=== PATIENT | female | born 1985 | race Caucasian/White ===

== ENCOUNTER → 2016-04-29 | Outpatient (CLI) | payer BC | END | disposition home or self-care (01) | LOC: LABWHC1 12:49 | PROVIDERS: ATTEND Family Medicine | DX: F90.2 Attention-deficit hyperactivity disorder, combined type (principal) | CPT/HCPCS: 36415; 93005 ==

== ENCOUNTER → 2016-11-11 | Outpatient (CLI) | payer BC ==
[2016-11-11 10:58] LABS: Basophils % (A) 1 %; CH 30.6; CHCM 33.4; Eosinophils # (A) 0.1 k/uL (0-0.7); Eosinophils % (A) 2 %; HCT 39.5 % (34.0-46.0); HDW 2.13; HGB 13.3 gm/dL (11.4-16.0); Luc # (Auto) 0.07; Luc % (Auto) 2; Lymphocytes # (A) 1.5 k/uL (1.0-4.8); Lymphocytes % (A) 35 %; MCH 31.1 pg (25.0-35.0); MCHC 33.7 g/dL (31.0-37.0); MCV 92.1 fL (80.0-100.0); Mean Platelet Volume 7.5; Monocytes # (A) 0.3 k/uL (0-1.0); Monocytes % (A) 6 %; Neutrophils # (A) 2.4 k/uL (1.3-7.7); Neutrophils % (A) 55 %; RBC 4.29 m/uL (3.80-5.40); WBC 4.3 k/uL (3.8-10.6); WBC (Perox) 4.32
[2016-11-11 11:20] LABS: ALT 38 U/L (9-52); AST 19 U/L (14-36); Alkaline Phosphatase 44 U/L (38-126); Anion Gap 14 mmol/L; Blood Urea Nitrogen 9 mg/dL (7-17); Calcium 9.9 mg/dL (8.4-10.2); Carbon Dioxide 25 mmol/L (22-30); Chloride 106 mmol/L (98-107); Glucose 81 mg/dL (74-99); Non-African American GFR(MDRD) >60 (>60 ml/min/1.73 sqM); Potassium 4.3 mmol/L (3.5-5.1); Sodium 145 mmol/L (137-145); Total Bilirubin 0.9 mg/dL (0.2-1.3); Total Protein 7.3 g/dL (6.3-8.2)
[2016-11-14 14:38] LABS: Mis test requested (Blood) Stratify JVC Ab/Indx
== END | disposition home or self-care (01) ==
LOC: LABWHC1 10:18
PROVIDERS: ATTEND Nurse Practitioner Acute Care
DX: E55.9 Vitamin D deficiency, unspecified (principal); G35 Multiple sclerosis
CPT/HCPCS: 36415; 80053; 82306; 84439; 84443; 84481; 85025

== ENCOUNTER → 2016-11-23 | Outpatient (CLI) | payer BC ==
--- NOTE | 2016-11-23 20:15 | MR ---
EXAMINATION TYPE: MR brain/cspine wo/w DATE OF EXAM: 11/23/2016 COMPARISON: 02/17/2016 HISTORY: MS CONTRAST: Performed utilizing 14 mL intravenous MultiHance gadolinium contrast. TECHNIQUE: Multiplanar, multisequence imaging of the brain is performed on a 3.0 Lilia magnet. Demye linating disease protocol with additional Sagittal Flair sequence is performed. Study is performed wi thin 24 hours of arrival to the hospital. FINDINGS: T2 White Matter Lesions Present : Yes Approximate Number of Lesions: 1 Locations Identified : Periventricular white matter Size of Largest Lesion(s): 1. 0.4 x 0.5 x 0.5 cm. Location: Left centrum semiovale periventricular region posteriorly Sequence 501 Image 20 (axial)and Sequence 601 Image 14 (sagittal). In retrospect this was present previously. Enhancing Lesion(s) Present: No Change from Prior: Stable Diffusion-weighted imaging is performed. No abnormal hyperintensity is present to suggest an acute i ntracranial infarct or acute ischemic change. Ventricles and sulci are appropriate for the patient age. There are no abnormal extra-axial fluid collections. The ventricular system and cisternal spaces are normal in size and appearance. The brain volume is age appropriate. The craniocervical junction jamie ears within normal limits. The dural venous sinuses appear patent. No abnormal enhancement is present on post contrast images. . There is a retention cyst within the ri ght maxillary sinus. Minimal mucosal thickenings with air cells. The orbits appear unremarkable. Post thickening is within the left frontal sinus. Mastoid air cells are clear. No abnormal enhancement is evident. IMPRESSION: 1. Solitary stable white matter change left posterior centrum semiovale adjacent to the left lateral ventricle superiorly 1 to 2 mm larger than previous measurements from prior exam. This is nonspecifi c. EXAMINATION TYPE: MR brain/cspine wo/w DATE OF EXAM: 11/23/2016 COMPARISON: 02/17/2016 HISTORY: MS CONTRAST: Performed utilizing 14 mL intravenous MultiHance gadolinium contrast. TECHNIQUE: Multiplanar multiecho imaging on a 3.0 Lilia magnet is performed through the cervical spin e. FINDINGS: The craniovertebral junction is normal. Vertebral body alignment is normal. Cervical spine: No focal disc herniation or significant disc bulge is evident. No spinal canal steno sis or neural foraminal stenosis is present. The posterior lateral spinal lesion posterior to the C3 level is again evident. This area measures 0. 4 x 0.3 cm x 0.4 series 1001 image 6, series 1201 39. This is extremely subtle but stable from prior study. This is better visualized on the sagittal proton-density MS protocol image. No abnormal enhancement is evident within the spine. IMPRESSIONS: 1. Stable left posterior lateral spinal cord lesion at C3.
== END | disposition home or self-care (01) ==
LOC: RADMRIMAIN 13:42
PROVIDERS: ATTEND Nurse Practitioner Acute Care
DX: R90.82 White matter disease, unspecified (principal); G95.89 Other specified diseases of spinal cord; M54.2 Cervicalgia
CPT/HCPCS: 70553; 72156; A9577

== ENCOUNTER → 2017-01-06 | Outpatient (CLI) | payer BC | END | disposition home or self-care (01) | LOC: LABWHC1 14:48 | PROVIDERS: ATTEND Obstetrics & Gynecology | DX: N92.6 Irregular menstruation, unspecified (principal) | CPT/HCPCS: 36415; 84702 ==

== ENCOUNTER → 2017-05-08 | Outpatient (CLI) | payer BC ==
[2017-05-08 12:49] LABS: Basophils % (A) 1 %; Eosinophils # (A) 0.1 k/uL (0-0.7); Eosinophils % (A) 3 %; Lymphocytes # (A) 1.9 k/uL (1.0-4.8); Lymphocytes % (A) 42 %; MCHC 33.2 g/dL (31.0-37.0); MCV 93.2 fL (80.0-100.0); Mean Platelet Volume 7.6; Monocytes # (A) 0.2 k/uL (0-1.0); Monocytes % (A) 4 %; Neutrophils # (A) 2.2 k/uL (1.3-7.7); Neutrophils % (A) 49 %; Platelet Count 221 k/uL (150-450); RBC 4.51 m/uL (3.80-5.40); RDW 12.8 % (11.5-15.5); WBC 4.5 k/uL (3.8-10.6)
[2017-05-08 12:58] LABS: ALT 33 U/L (9-52); AST 19 U/L (14-36); Alkaline Phosphatase 40 U/L (38-126); Anion Gap 12 mmol/L; Blood Urea Nitrogen 10 mg/dL (7-17); Calcium 10.3 mg/dL (8.4-10.2); Carbon Dioxide 26 mmol/L (22-30); Chloride 105 mmol/L (98-107); Glucose 88 mg/dL (74-99); Potassium 4.1 mmol/L (3.5-5.1); Sodium 143 mmol/L (137-145); Total Bilirubin 0.8 mg/dL (0.2-1.3); Total Protein 7.6 g/dL (6.3-8.2)
== END | disposition home or self-care (01) ==
LOC: LABWHC1 12:33
PROVIDERS: ATTEND Nurse Practitioner Acute Care
DX: E55.9 Vitamin D deficiency, unspecified (principal); G35 Multiple sclerosis
CPT/HCPCS: 36415; 80053; 82306; 85025

== ENCOUNTER → 2017-06-14 | Outpatient (CLI) | payer BC ==
--- NOTE | 2017-06-15 17:10 | MR ---
EXAMINATION TYPE: MR brain wo/w con DATE OF EXAM: 06/14/2017 COMPARISON: 11/23/2016 HISTORY: MS Follow Up, Gadavist 7.5 TECHNIQUE: Multiplanar, multisequence images of the brain and brainstem is performed without and with IV contras t, utilizing 7.5 mL intravenous Gadavist gadolinium contrast is administered intravenously. Demyelin ating disease protocol with additional Sagittal Flair sequence performed. FINDINGS: T2 Lesions Present : Yes Approximate Number of Lesions: 1 Locations Identified : Periventricular/pericallosal Size of Reference Lesion(s): 1. 0.4 cm x 0.5 cm x 0.5 cm on axial image 21 and sagittal image 11 2 # cm x # cm x # cm on axial image # and sagittal image # Enhancing Lesion(s) Present: No Change from Prior: Stable Diffusion weighted images demonstrate no evidence of a recent infarct or other diffusion abnormality. There is no worrisome extra-axial fluid collection. The ventricular system and cisternal spaces ar e normal in size and appearance. The brain volume is age appropriate. Midline structures demonstrate normal morphology. There is incidental note made of a 3 mm pineal gla nd cyst. The craniocervical junction appears within normal limits. Post contrast images demonstrate no abnormal enhancement. The dural venous sinuses appear patent. The globes are intact. No enhancemen t on the optic nerves. There is mild coastal thickening within the ethmoid and left frontal sinus wit h a 2.3 cm maxillary mucosal retention cyst. IMPRESSION: 1. Solitary stable left periventricular/pericallosal white matter change/demyelinating plaque that is nonenhancing and does not restricted diffusion and therefore does not demonstrate evidence of active demyelination. 2. Redemonstration of a right maxillary mucosal retention cyst measuring 2.3 cm. Mild paranasal sinus disease.
== END | disposition home or self-care (01) ==
LOC: RADMRIMAIN 13:31
PROVIDERS: ATTEND Psychiatry & Neurology Neurology
DX: G35 Multiple sclerosis (principal)
CPT/HCPCS: 70553; A9581

== ENCOUNTER 2017-11-23 10:00 | Inpatient (IN) | payer BC ==
[2017-11-23] MEDS ORDERED: PIPERACILLIN-TAZOBACTAM 3.375 GM in DEXTROSE/WATER 1 50ML.BAG IVPB STA (10:34)
[2017-11-23] MEDS ORDERED: IPRATROPIUM 0.5 MG/2.5 ML NEBU INHALATION STA (10:34)
[2017-11-23] MEDS ORDERED: ALBUTEROL NEBULIZED 2.5 MG/3 ML INHALATION STA (10:34)
[2017-11-23] MEDS ORDERED: SODIUM CHLORIDE 0.9% 500 ML IV STA (10:34)
[2017-11-23] MEDS ORDERED: LEVOFLOXACIN 750MG-D5W PMX 750 MG in DEXTROSE/WATER 1 150ML.BAG IVPB STA (10:34)
[2017-11-23] MEDS ORDERED: methylPREDNISolone SOD SUCCI 125 MG/2 ML VIAL IV STA (10:34)
[2017-11-23] MEDS ORDERED: SODIUM CHLORIDE 0.9% 1,000 ML IV STA (10:34)
[2017-11-23 11:04] LABS: Appearance,Urine Clear (Clear); Basophils % (A) 0 %; Bilirubin,Urine Negative (Negative); Blood,Urine Large (Negative); Color,Urine Light Yellow; Eosinophils # (A) 0.3 k/uL (0-0.7); Eosinophils % (A) 4 %; Glucose,Urine (UA) Negative (Negative); HCT 41.2 % (34.0-46.0); HGB 14.1 gm/dL (11.4-16.0); Ketones,Urine Negative (Negative); Leukocyte Esterase,Urine Negative (Negative); Lymphocytes # (A) 1.7 k/uL (1.0-4.8); Lymphocytes % (A) 20 %; MCH 31.4 pg (25.0-35.0); MCHC 34.2 g/dL (31.0-37.0); MCV 91.7 fL (80.0-100.0); Mean Platelet Volume 7.4; Monocytes # (A) 0.6 k/uL (0-1.0); Monocytes % (A) 6 %; Neutrophils # (A) 6.1 k/uL (1.3-7.7); Neutrophils % (A) 69 %; Nitrite,Urine Negative (Negative); Platelet Count 303 k/uL (150-450); Protein,Urine Negative (Negative); RBC 4.49 m/uL (3.80-5.40); RBC,Urine 1 /hpf (0-5); RDW 12.7 % (11.5-15.5); Specific Gravity,Urine 1.002 (1.001-1.035); Squamous Epithelial Cell,Urine 2 /hpf (0-4); Urobilinogen,Urine <2.0 mg/dL (<2.0); WBC 8.9 k/uL (3.8-10.6); WBC,Urine 1 /hpf (0-5)
[2017-11-23 11:12] LABS: ALT 259 U/L (9-52); AST 126 U/L (14-36); Albumin 4.3 g/dL (3.5-5.0); Alkaline Phosphatase 38 U/L (38-126); Anion Gap 10 mmol/L; Blood Urea Nitrogen 9 mg/dL (7-17); Calcium 9.7 mg/dL (8.4-10.2); Carbon Dioxide 26 mmol/L (22-30); Chloride 107 mmol/L (98-107); Glucose 56 mg/dL (74-99); Potassium 4.4 mmol/L (3.5-5.1); Sodium 143 mmol/L (137-145); Total Bilirubin 0.6 mg/dL (0.2-1.3); Total Protein 7.1 g/dL (6.3-8.2)
[2017-11-23 11:19] LABS: D-Dimer 0.43 mg/L FEU (<0.60); Partial Thromboplastin Time 23.2 sec (22.0-30.0); Prothrombin Time 9.9 sec (9.0-12.0)
[2017-11-23 11:23] LABS: Creatine Kinase 92 U/L (30-135)
[2017-11-23 11:36] LABS: Troponin I <0.012 ng/mL (0.000-0.034)
--- NOTE | 2017-11-23 11:49 | ED ---
General Adult HPI - General Chief complaint: Shortness of Breath Stated complaint: Diff Breahing Time Seen by Provider: 11/23/17 10:15 Source: patient, RN notes reviewed, old records reviewed Mode of arrival: ambulatory Limitations: no limitations - History of Present Illness Initial comments: This is a 32-year-old female the ER for evaluation of cough congestion and fevers. Patient has medical history of MS. Currently on antibiotics for diagnosis of pneumonia one week ago. Patient states she has not improved at all despite antibiotic therapy she is Exie gotten worse. She continues with shortness of breath cough weakness she is complaining of vision changes hand and finger numbness and weakness. These are typical symptoms of her MS, patient also complaining of shortness of breath, denying any current chest pain. No recent travel history no sick contacts no history of DVT - Related Data Home Medications Medication Instructions Recorded Confirmed Medroxyprogesterone Acetate 150 mg IM DIRECTED 06/24/15 02/12/16 [Depo-Provera] Betaseron 0.3 mg SQ DIRECTED 02/08/16 02/12/16 Escitalopram [Lexapro] 10 mg PO DAILY 02/08/16 02/12/16 Allergies Allergy/AdvReac Type Severity Reaction Status Date / Time No Known Allergies Allergy Verified 11/23/17 10:10 Review of Systems ROS Statement: Those systems with pertinent positive or pertinent negative responses have been documented in the HPI. ROS Other: All systems not noted in ROS Statement are negative. Past Medical History Past Medical History: Neurologic Disorder Additional Past Medical History / Comment(s): MS History of Any Multi-Drug Resistant Organisms: None Reported Past Surgical History: Tonsillectomy Past Psychological History: Anxiety, Depression Smoking Status: Former smoker Past Alcohol Use History: Rare Past Drug Use History: None Reported General Exam Limitations: no limitations General appearance: alert, in no apparent distress, anxious Head exam: Present: atraumatic, normocephalic, normal inspection Eye exam: Present: normal appearance, PERRL, EOMI. Absent: scleral icterus, conjunctival injection, periorbital swelling ENT exam: Present: normal exam, mucous membranes moist Neck exam: Present: normal inspection. Absent: tenderness, meningismus, lymphadenopathy Respiratory exam: Present: normal lung sounds bilaterally, rhonchi, decreased breath sounds. Absent: respiratory distress, wheezes, rales, stridor Cardiovascular Exam: Present: regular rate, normal rhythm, normal heart sounds. Absent: systolic murmur, diastolic murmur, rubs, gallop, clicks GI/Abdominal exam: Present: soft, normal bowel sounds. Absent: distended, tenderness, guarding, rebound, rigid Extremities exam: Present: normal inspection, full ROM, normal capillary refill. Absent: tenderness, pedal edema, joint swelling, calf tenderness Back exam: Present: normal inspection Neurological exam: Present: alert, oriented X3, CN II-XII intact Psychiatric exam: Present: normal affect, normal mood Skin exam: Present: warm, dry, intact, normal color. Absent: rash Course Vital Signs 11/23/17 11/23/17 11/23/17 10:07 10:49 10:53 Temperature 98.2 F Pulse Rate 100 100 86 Respiratory 20 20 Rate Blood Pressure 133/89 115/79 O2 Sat by Pulse 100 100 Oximetry 11/23/17 11/23/17 11:05 11:30 Temperature Pulse Rate 103 H 108 H Respiratory Rate Blood Pressure O2 Sat by Pulse Oximetry - Reevaluation(s) Reevaluation #1: 11/23/17 12:29 Patient still remains short of breath with no significant improvement here in the ER EKG Findings - EKG Comments: EKG Findings:: EKG shows normal sinus rhythm rate of 92, AR 120, QRS 80, QTC 455 Medical Decision Making - Medical Decision Making 32 female the ER for evaluation of recurrent pneumonia continued pneumonia despite therapy as an outpatient, has taken doxycycline times one week with no help. Patient's significant infection is also lead to MS exacerbation causing her severe weakness and difficulty breathing, vision changes. - Lab Data Result diagrams: 11/23/17 10:43 11/23/17 10:43 Lab Results 11/23/17 11/23/17 11/23/17 Range/Units 10:43 10:43 10:43 WBC 8.9 (3.8-10.6) k/uL RBC 4.49 (3.80-5.40) m/uL Hgb 14.1 (11.4-16.0) gm/dL Hct 41.2 (34.0-46.0) % MCV 91.7 (80.0-100.0) fL MCH 31.4 (25.0-35.0) pg MCHC 34.2 (31.0-37.0) g/dL RDW 12.7 (11.5-15.5) % Plt Count 303 (150-450) k/uL Neutrophils % 69 % Lymphocytes % 20 % Monocytes % 6 % Eosinophils % 4 % Basophils % 0 % Neutrophils # 6.1 (1.3-7.7) k/uL Lymphocytes # 1.7 (1.0-4.8) k/uL Monocytes # 0.6 (0-1.0) k/uL Eosinophils # 0.3 (0-0.7) k/uL Basophils # 0.0 (0-0.2) k/uL PT (9.0-12.0) sec INR (<1.2) APTT (22.0-30.0) sec D-Dimer (<0.60) mg/L FEU Sodium 143 (137-145) mmol/L Potassium 4.4 (3.5-5.1) mmol/L Chloride 107 (98-107) mmol/L Carbon Dioxide 26 (22-30) mmol/L Anion Gap 10 mmol/L BUN 9 (7-17) mg/dL Creatinine 0.50 L (0.52-1.04) mg/dL Est GFR (CKD-EPI)AfAm >90 (>60 ml/min/1.73 sqM) Est GFR (CKD-EPI)NonAf >90 (>60 ml/min/1.73 sqM) Glucose 56 L (74-99) mg/dL Calcium 9.7 (8.4-10.2) mg/dL Magnesium 2.0 (1.6-2.3) mg/dL Total Bilirubin 0.6 (0.2-1.3) mg/dL AST 126 H (14-36) U/L ALT 259 H (9-52) U/L Alkaline Phosphatase 38 (38-126) U/L Total Creatine Kinase 92 (30-135) U/L CK-MB (CK-2) 1.0 (0.0-2.4) ng/mL CK-MB (CK-2) Rel Index 1.1 Troponin I <0.012 (0.000-0.034) ng/mL Total Protein 7.1 (6.3-8.2) g/dL Albumin 4.3 (3.5-5.0) g/dL Urine Color Urine Appearance (Clear) Urine pH (5.0-8.0) Ur Specific Riddle (1.001-1.035) Urine Protein (Negative) Urine Glucose (UA) (Negative) Urine Ketones (Negative) Urine Blood (Negative) Urine Nitrite (Negative) Urine Bilirubin (Negative) Urine Urobilinogen (<2.0) mg/dL Ur Leukocyte Esterase (Negative) Urine RBC (0-5) /hpf Urine WBC (0-5) /hpf Ur Squamous Epith Cells (0-4) /hpf Urine HCG, Qual (Not Detectd) 11/23/17 11/23/17 11/23/17 Range/Units 10:43 10:43 10:43 WBC (3.8-10.6) k/uL RBC (3.80-5.40) m/uL Hgb (11.4-16.0) gm/dL Hct (34.0-46.0) % MCV (80.0-100.0) fL MCH (25.0-35.0) pg MCHC (31.0-37.0) g/dL RDW (11.5-15.5) % Plt Count (150-450) k/uL Neutrophils % % Lymphocytes % % Monocytes % % Eosinophils % % Basophils % % Neutrophils # (1.3-7.7) k/uL Lymphocytes # (1.0-4.8) k/uL Monocytes # (0-1.0) k/uL Eosinophils # (0-0.7) k/uL Basophils # (0-0.2) k/uL PT 9.9 (9.0-12.0) sec INR 1.0 (<1.2) APTT 23.2 (22.0-30.0) sec D-Dimer 0.43 (<0.60) mg/L FEU Sodium (137-145) mmol/L Potassium (3.5-5.1) mmol/L Chloride (98-107) mmol/L Carbon Dioxide (22-30) mmol/L Anion Gap mmol/L BUN (7-17) mg/dL Creatinine (0.52-1.04) mg/dL Est GFR (CKD-EPI)AfAm (>60 ml/min/1.73 sqM) Est GFR (CKD-EPI)NonAf (>60 ml/min/1.73 sqM) Glucose (74-99) mg/dL Calcium (8.4-10.2) mg/dL Magnesium (1.6-2.3) mg/dL Total Bilirubin (0.2-1.3) mg/dL AST (14-36) U/L ALT (9-52) U/L Alkaline Phosphatase (38-126) U/L Total Creatine Kinase (30-135) U/L CK-MB (CK-2) (0.0-2.4) ng/mL CK-MB (CK-2) Rel Index Troponin I (0.000-0.034) ng/mL Total Protein (6.3-8.2) g/dL Albumin (3.5-5.0) g/dL Urine Color Light Yellow Urine Appearance Clear (Clear) Urine pH 7.0 (5.0-8.0) Ur Specific Riddle 1.002 (1.001-1.035) Urine Protein Negative (Negative) Urine Glucose (UA) Negative (Negative) Urine Ketones Negative (Negative) Urine Blood Large H (Negative) Urine Nitrite Negative (Negative) Urine Bilirubin Negative (Negative) Urine Urobilinogen <2.0 (<2.0) mg/dL Ur Leukocyte Esterase Negative (Negative) Urine RBC 1 (0-5) /hpf Urine WBC 1 (0-5) /hpf Ur Squamous Epith Cells 2 (0-4) /hpf Urine HCG, Qual Not Detected (Not Detectd) - Radiology Data Radiology results: report reviewed (Chest x-ray is positive for pneumonia), image reviewed Disposition Clinical Impression: Community acquired pneumonia, Failure of outpatient treatment, Exacerbation of multiple sclerosis Disposition: ADMITTED IP TO THIS HOSP Condition: Good Is patient prescribed a controlled substance at d/c from ED?: No Referrals: Marshal Suazo MD [Primary Care Provider] - 1-2 days
[2017-11-23] MEDS ORDERED: PNEUMONIA PROTOCOL UTILIZED 1 EACH MISC PO PRN (12:30)
[2017-11-23 13:21] LABS: Glucose,Whole Blood 117 mg/dL (75-99)
[2017-11-23 13:28] VITALS: BMI 27.8
[2017-11-23 15:30] LABS: Glucose,Whole Blood 192 mg/dL (75-99)
[2017-11-23 19:43] LABS: Glucose,Whole Blood 193 mg/dL (75-99)
[2017-11-23] MEDS: ALBUTEROL NEBULIZED 2.5 MG/3 ML INHALATION PRN (20:27)
[2017-11-23 21:37] LABS: Glucose,Whole Blood 228 mg/dL (75-99)
[2017-11-23] MEDS: INSULIN ASPART 100 UNIT/ML 1 ML 10 ML VIAL SQ SCH (21:37)
[2017-11-23] MEDS ORDERED: IBUPROFEN 200 MG TAB PO PRN (22:56)
[2017-11-23] MEDS ORDERED: NON-FORMULARY DRUG (Dimethyl Fumarate [Tecfidera] 240 MG) PO SCH (23:00)
[2017-11-24] MEDS: Dimethyl Fumarate [Tecfidera] 240 MG PO SCH ×3 (00:27→21:05)
[2017-11-24] MEDS: diphenhydrAMINE 25 MG CAP PO PRN ×2 (00:27→21:28)
[2017-11-24] MEDS: PIPERACILLIN-TAZOBACTAM 3.375 GM in DEXTROSE/WATER 1 50ML.BAG IVPB SCH ×3 (00:28→16:34)
[2017-11-24] MEDS: SODIUM CHLORIDE 0.9% 1,000 ML IV SCH ×3 (00:29→17:46)
[2017-11-24 07:50] LABS: Glucose,Whole Blood 132 mg/dL (75-99)
[2017-11-24] MEDS: INSULIN ASPART 100 UNIT/ML 1 ML 10 ML VIAL SQ SCH ×4 (08:46→20:57)
[2017-11-24 10:24] LABS: Basophils % (A) 0 %; Eosinophils % (A) 0 %; HCT 40.2 % (34.0-46.0); HGB 13.4 gm/dL (11.4-16.0); Lymphocytes # (A) 1.3 k/uL (1.0-4.8); Lymphocytes % (A) 8 %; MCH 30.8 pg (25.0-35.0); MCHC 33.3 g/dL (31.0-37.0); MCV 92.3 fL (80.0-100.0); Mean Platelet Volume 6.9; Monocytes # (A) 0.3 k/uL (0-1.0); Monocytes % (A) 2 %; Neutrophils # (A) 15.8 k/uL (1.3-7.7); Neutrophils % (A) 90 %; Platelet Count 355 k/uL (150-450); RBC 4.36 m/uL (3.80-5.40); RDW 12.5 % (11.5-15.5); WBC 17.5 k/uL (3.8-10.6)
[2017-11-24 10:49] LABS: Anion Gap 12 mmol/L; Blood Urea Nitrogen 8 mg/dL (7-17); Calcium 9.9 mg/dL (8.4-10.2); Carbon Dioxide 21 mmol/L (22-30); Chloride 108 mmol/L (98-107); Glucose 254 mg/dL (74-99); Potassium 3.9 mmol/L (3.5-5.1); Sodium 141 mmol/L (137-145)
[2017-11-24] MEDS ORDERED: ALBUTEROL NEBULIZED 2.5 MG/3 ML INHALATION STA (10:53)
[2017-11-24] MEDS ORDERED: guaiFENesin 600 MG TABLET.ER PO PRN (11:21)
[2017-11-24] MEDS ORDERED: traMADol 50 MG TAB PO STA (11:40)
[2017-11-24 11:58] LABS: Glucose,Whole Blood 182 mg/dL (75-99)
[2017-11-24] MEDS ORDERED: LEVOFLOXACIN 750MG-D5W PMX 750 MG in DEXTROSE/WATER 1 150ML.BAG IVPB SCH (12:00)
[2017-11-24] MEDS: guaiFENesin 600 MG TABLET.ER PO SCH ×2 (12:06→20:57)
--- NOTE | 2017-11-24 12:09 | P.HPIM ---
History of Present Illness H&P Date: 11/24/17 Chief Complaint: weakness, fatigue, pna per UC 32-year-old female who presented to the emergency room with a chief complaint of weakness, fatigue, double vision, and pneumonia per patient. The patient reports she was in [place] last week and began feeling extremely fatigued, exhausted, and having double vision which she related to being at [employer] as they were doing a lot of activities and walking alot. The patient reports her symptoms did not improve when she got home. She states that she went to an urgent care last week and was prescribed an inhaler and doxycycline. She states her symptoms persisted so she went to [facility] yesterday who did an x-ray and told her she had bilateral pneumonia and referred her to the emergency room. No chest x-ray report is available at this time. The patient has a history of multiple sclerosis, anxiety, and depression. She is a former cigarette smoker. laboratory data upon admission reveals white count of 8.9. Hemoglobin 14.1. Platelet count 303. D-dimer 0.43. Sodium 143. Potassium 4.4. BUN 9. Creatinine 0.50. Glucose 56. AST 126. ALT 259. total bilirubin 0.6. Magnesium 2.0. Alkaline phosphatase 38. Troponins negative 1. the patient is currently receiving Levaquin and Zosyn. She was placed on IV fluids and admitted to the hospital for further evaluation. Neurology has been consulted for exacerbation of multiple sclerosis. Review of Systems Those systems with pertinent positive or pertinent negative responses have been documented in the HPI Past Medical History Past Medical History: Neurologic Disorder, Pneumonia Additional Past Medical History / Comment(s): MS (November 2015) History of Any Multi-Drug Resistant Organisms: None Reported Past Surgical History: Tonsillectomy Past Anesthesia/Blood Transfusion Reactions: No Reported Reaction Past Psychological History: Anxiety, Depression Smoking Status: Former smoker Past Alcohol Use History: Rare Past Drug Use History: None Reported - Past Family History Father Family Medical History: Cancer Additional Family Medical History / Comment(s): of Lung CA Medications and Allergies Home Medications Medication Instructions Recorded Confirmed Type Albuterol Inhaler [Ventolin Hfa 2 puff INHALATION RT-Q6H PRN 11/23/17 11/23/17 History Inhaler] Ascorbic Acid [Vitamin C] 500 mg PO DAILY 11/23/17 11/23/17 History Cholecalciferol [Vitamin D3] 1,000 unit PO DAILY 11/23/17 11/23/17 History Dimethyl Fumarate [Tecfidera] 240 mg PO BID 11/23/17 11/23/17 History Doxycycline Monohydrate 100 mg PO BID 11/23/17 11/23/17 History [Vibramycin] Ibuprofen/Diphenhydramine Cit 2 tab PO HS PRN 11/23/17 11/23/17 History [Motrin Pm Caplet] Inulin/Chromium Picolinate [Fiber 1 tab PO DAILY 11/23/17 11/23/17 History Gummies Chew] L.acidoph,Paracasei, B.lactis 1 cap PO DAILY 11/23/17 11/23/17 History [Probiotic] Lisdexamfetamine Dimesylate 70 mg PO QAM 11/23/17 11/23/17 History [Vyvanse] guaiFENesin [Mucinex] 600 mg PO Q12H PRN 11/23/17 11/23/17 History traMADol HCL [Ultram] 50 mg PO BID 11/23/17 11/23/17 History Allergies Allergy/AdvReac Type Severity Reaction Status Date / Time No Known Allergies Allergy Verified 11/23/17 13:02 Physical Exam Vitals: Vital Signs Temp Pulse Pulse Pulse Resp BP BP 11/24/17 07:00 97.6 F 98 18 104/62 11/23/17 23:00 99.0 F 97 18 119/70 11/23/17 20:35 98 11/23/17 20:29 94 11/23/17 20:23 98.4 F 102 H 16 111/72 11/23/17 20:10 102 H 16 11/23/17 14:41 99.1 F 101 H 16 111/67 11/23/17 13:17 99.1 F 91 16 121/85 11/23/17 12:50 98.2 F 11/23/17 12:47 80 16 109/66 Pulse Ox 11/24/17 07:00 93 L 11/23/17 23:00 95 11/23/17 20:35 11/23/17 20:29 11/23/17 20:23 94 L 11/23/17 20:10 11/23/17 14:41 96 11/23/17 13:17 98 11/23/17 12:50 08/19/18 12:47 97 Intake and Output 11/23/17 11/24/17 11/24/17 22:59 06:59 14:59 Intake Total 1570 240 Balance 1570 240 Intake: Intake, IV Titration 850 Amount Piperacillin-Tazobactam 3 50 .375 gm In Dextrose/Water 1 50ml.bag @ 12.5 mls/hr IVPB Q8HR [facility] Rx#: [id number] Sodium Chloride 0.9% 1, 800 000 ml @ 100 mls/hr IV . Q10H [facility] Rx#:[id number] Oral 720 240 Other: # Voids 3 1 Weight 66.678 kg GENERAL: This is a 32-year-old female in no apparent distress at the time of examination. Pleasant and cooperative. HEENT: Head is atraumatic, normocephalic. Pupils are equal, round, and reactive to light. Sclerae anicteric. Conjunctivae are clear. Mucus membranes of the mouth are moist. Neck is supple. RESPIRATORY: lung sounds coarse. No rales auscultated. No use of accessory muscles. Patient maintaining oxygen saturation greater than 92%. No chest wall tenderness is noted on palpation or with deep breathing. CARDIOVASCULAR: Regular rate and rhythm. S1 and S2 noted. No systolic or diastolic murmur auscultated. No JVD noted. No S3 or S4 noted. GASTROINTESTINAL: No distention noted. Abdomen soft and round. Normal active bowel sounds auscultated x 4 quadrants. No pain or tenderness noted upon palpation. INTEGUMENTARY: No cyanosis. No jaundice. No rashes noted. No cellulitis noted. EXTREMITIES: 2+ peripheral pulses. No evidence of peripheral edema. No calf tenderness noted. NEUROLOGIC: Cranial nerves II-XII intact. PSYCHIATRIC: Awake, alert, and oriented X 3. Appropriate affect. Intact judgement and insight. Results CBC & Chem 7: 11/24/17 09:58 11/24/17 09:58 Labs: Abnormal Lab Results - Last 24 Hours (Table) 11/23/17 11/23/17 11/23/17 Range/Units 13:19 15:28 19:36 WBC (3.8-10.6) k/uL Neutrophils # (1.3-7.7) k/uL Chloride (98-107) mmol/L Carbon Dioxide (22-30) mmol/L Creatinine (0.52-1.04) mg/dL Glucose (74-99) mg/dL POC Glucose (mg/dL) 117 H 192 H 193 H (75-99) mg/dL 11/23/17 11/24/17 11/24/17 Range/Units 21:32 07:30 09:58 WBC 17.5 H (3.8-10.6) k/uL Neutrophils # 15.8 H (1.3-7.7) k/uL Chloride (98-107) mmol/L Carbon Dioxide (22-30) mmol/L Creatinine (0.52-1.04) mg/dL Glucose (74-99) mg/dL POC Glucose (mg/dL) 228 H 132 H (75-99) mg/dL 11/24/17 Range/Units 09:58 WBC (3.8-10.6) k/uL Neutrophils # (1.3-7.7) k/uL Chloride 108 H (98-107) mmol/L Carbon Dioxide 21 L (22-30) mmol/L Creatinine 0.47 L (0.52-1.04) mg/dL Glucose 254 H (74-99) mg/dL POC Glucose (mg/dL) (75-99) mg/dL Microbiology - Last 24 Hours (Table) 11/23/17 20:39 Gram Stain - Preliminary Sputum Thrombosis Risk Factor Assmnt - Choose All That Apply Any of the Below Risk Factors Present?: Yes Each Factor Represents 1 point: Oral contraceptives or hormone replacement therapy Other Risk Factors: No Other congenital or acquired thrombophilia - If yes, enter type in comment: No Thrombosis Risk Factor Assessment Total Risk Factor Score: 1 Thrombosis Risk Factor Assessment Level: Low Risk Assessment and Plan Plan: ASSESSMENT: Acute exacerbation of multiple sclerosis Double vision secondary to above Steroid-induced hyperglycemia Bilateral pneumonia per x-ray at urgent care, repeat x-ray pending Transaminitis, possibly medication related History of anxiety and depression PLAN: Neurology on consult. Appreciate recommendations and input Continue IV steroids. Continue Novolog sliding scale ASHS per steroid protocol. continue antibiotics: Currently on Levaquin and Zosyn Await sputum culture results Repeat chest x-ray Albuterol nebulizer treatments Mucinex every 12 hours Repeat LFTs Home meds as appropriate Monitor labs GI prophylaxis: Pepcid 20 mg by mouth twice a day DVT prophylaxis: LEILA hose to bilateral lower extremities Monitor vital signs and address as appropriate Discharge planning: Patient to return home when stable Further recommendations pending patient's course Nurse practitioner note has been reviewed by physician. Signing provider agrees with the documented findings, assessment, and plan of care.
[2017-11-24 12:26] LABS: ALT 190 U/L (9-52); AST 60 U/L (14-36)
[2017-11-24 13:14] LABS: Hemoglobin A1C 5.5 % (4.0-6.0)
--- NOTE | 2017-11-24 13:37 | XR ---
EXAMINATION TYPE: XR chest 2V DATE OF EXAM: 11/24/2017 COMPARISON: Outside chest x-ray from yesterday. HISTORY: Pneumonia progress study. TECHNIQUE: Frontal and lateral views of the chest are obtained. FINDINGS: There is persistent patchy left basilar opacity seen best on frontal view versus lateral v iew likely localized to lingula on lateral view. No silhouetting of heart border or hemidiaphragm is seen. There is no new focal air space opacity, pleural effusion, or pneumothorax seen. The cardiac s ilhouette size is within normal limits. The osseous structures are intact. IMPRESSION: Suspect acute lingular infiltrate and/or atelectasis. No significant change from outside study one day earlier.
[2017-11-24 17:32] LABS: Glucose,Whole Blood 197 mg/dL (75-99)
[2017-11-24 20:51] LABS: Glucose,Whole Blood 183 mg/dL (75-99)
[2017-11-24] MEDS: traMADol 50 MG TAB PO SCH (20:57)
[2017-11-24] MEDS: FAMOTIDINE 20 MG TAB PO SCH (20:57)
[2017-11-24] MEDS: ALBUTEROL NEBULIZED 2.5 MG/3 ML INHALATION PRN (20:58)
[2017-11-25] MEDS: PIPERACILLIN-TAZOBACTAM 3.375 GM in DEXTROSE/WATER 1 50ML.BAG IVPB SCH ×2 (01:15→07:29)
[2017-11-25] MEDS: SODIUM CHLORIDE 0.9% 1,000 ML IV SCH ×2 (05:50→11:21)
[2017-11-25 06:20] VITALS: BP 98/62; TEMP 98
[2017-11-25 07:15] LABS: Glucose,Whole Blood 142 mg/dL (75-99)
--- NOTE | 2017-11-25 07:15 | XR ---
EXAMINATION TYPE: XR chest 2V DATE OF EXAM: 11/25/2017 COMPARISON: Prior chest x-ray 11/24/2017 HISTORY: Pneumonia TECHNIQUE: Frontal and lateral views of the chest are obtained. FINDINGS: There is residual increased attenuation present within the lingula. No evident pneumothora x or pleural effusion. Cardiomediastinal silhouette, pulmonary vascularity and tracee are unremarkable. IMPRESSION: Airspace disease within the lingula is compatible with pneumonia similar to previous exa m.
[2017-11-25] MEDS: Dimethyl Fumarate [Tecfidera] 240 MG PO SCH (07:16)
[2017-11-25] MEDS: FAMOTIDINE 20 MG TAB PO SCH (07:30)
[2017-11-25] MEDS: traMADol 50 MG TAB PO SCH (07:30)
[2017-11-25] MEDS: guaiFENesin 600 MG TABLET.ER PO SCH (07:30)
[2017-11-25] MEDS: INSULIN ASPART 100 UNIT/ML 1 ML 10 ML VIAL SQ SCH ×3 (07:58→16:38)
[2017-11-25 08:42] LABS: Basophils % (A) 0 %; Eosinophils % (A) 0 %; HCT 37.7 % (34.0-46.0); HGB 12.2 gm/dL (11.4-16.0); Lymphocytes % (A) 6 %; MCH 31.1 pg (25.0-35.0); MCHC 32.4 g/dL (31.0-37.0); MCV 95.8 fL (80.0-100.0); Mean Platelet Volume 7.1; Monocytes # (A) 0.4 k/uL (0-1.0); Monocytes % (A) 2 %; Neutrophils # (A) 16.8 k/uL (1.3-7.7); Neutrophils % (A) 92 %; Platelet Count 287 k/uL (150-450); RBC 3.94 m/uL (3.80-5.40); RDW 12.8 % (11.5-15.5); WBC 18.3 k/uL (3.8-10.6)
--- NOTE | 2017-11-25 08:44 | CONS ---
CONSULTATION DATE OF CONSULTATION: 11/24/2017. CHIEF COMPLAINT: Multiple sclerosis exacerbation. HISTORY OF PRESENT ILLNESS: Mrs. Sims is a pleasant 32-year-old female who is being evaluated today on 11/24/2017 by the neurology service per the request of Dr. Suazo for a multiple sclerosis exacerbation. The patient has history of multiple sclerosis and is currently on Tecfidera p.o. b.i.d. She has been on Tecfidera for couple of years and denies any adverse affects. Over the past several days, she has been having significant fatigue and double vision along with some numbness on her left side of her body. The patient was out of town in [place] last week when the symptoms started. When she returned home, she was still having symptoms and was also having some fevers. She was evaluated at a walk-in clinic and according to the chart, she was found to have pneumonia. She was brought into [facility] Emergency Room for further management. She has been started on IV antibiotics and IV Solu-Medrol. At the time of my evaluation, she reports significant improvement in her symptoms. She states that her fatigue has resolved and she denies any current double-vision. She continues to complain of mild numbness and tingling on the left side. Her CBC showed leukocytosis at 17.5 and her comprehensive metabolic profile showed hepatic insufficiency on her admission with an AST of 126 and an ALT of 259. A repeat CMP from this morning showed moderate improvement with an ALT of 190 and AST of 60. Her urinalysis showed large blood, with no other abnormalities. At the time of my evaluation, she is lying in her bed and appears to be in no acute distress. She denies any other neurological complaints. PAST MEDICAL HISTORY: Multiple sclerosis, anxiety disorder, depression, history of tonsillectomy. SOCIAL HISTORY: The patient is a former smoker. She rarely drinks alcohol. She denies any drug use. FAMILY HISTORY: Cancer. HOME MEDICATIONS: Reviewed in the chart. ALLERGIES: No known drug allergies. REVIEW OF SYSTEMS: CONSTITUTIONAL: As mentioned above. EYES: As mentioned above. ENT: Negative. CARDIOVASCULAR: Negative. RESPIRATORY: As mentioned above. NEUROLOGICAL: As mentioned above. PSYCHIATRIC: Positive for history of depression and anxiety disorder. MUSCULOSKELETAL: Positive for occasional joint pain. ENDOCRINE: Negative. DERMATOLOGICAL: Negative. PHYSICAL EXAM: Vital signs show a temperature of 99.2, pulse 97, respiration 18, blood pressure 109/69. GENERAL APPEARANCE: The patient is a well-developed female, who appears to be in no acute distress. HEENT: Normocephalic, atraumatic. No facial asymmetry is seen. NECK: Supple with no masses felt. CARDIOVASCULAR: Regular rate and rhythm. ABDOMEN: Nontender, nondistended. EXTREMITIES: Showed no edema or clubbing. NEUROLOGICAL: The patient is alert, aware and oriented x3. Speech and language are normal. Strength is full in all 4 extremities. No pronator drift is seen. No dysdiadochokinesia is noticed. Sensory exam showed slightly diminished light touch sensation on the left upper extremity compared to the right. No facial asymmetry is seen on cranial nerve testing. No tremors or seizure-like activity is seen. IMPRESSION: 1. Multiple sclerosis exacerbation. 2. Diplopia, resolved. 3. Left-sided numbness. 4. Fatigue. 5. Pneumonia. 6. Hepatic insufficiency. 7. Hematuria. RECOMMENDATION: The patient's neurological symptoms are consistent with multiple sclerosis exacerbation, which may have been exacerbated by the excessive heat. Her symptoms have improved but she continues to have mild numbness on the left side. I will continue with IV Solu-Medrol at 250 mg every [address] a prescription for prednisone taper in her chart. Physical therapy has been consulted. Her liver enzymes were found to be elevated. I do recommend continuing to monitor her liver function. I will repeat a hepatic profile lab tests for tomorrow morning. I do recommend further workup regarding her hematuria. Continue IV antibiotics for pneumonia. I will continue to follow with you. Further recommendations to follow. Thank you, Dr. Suazo for allowing me to participate in the care of your patient. If you have any questions, please feel free to contact me. MMODL / IJN: [id number] /
[2017-11-25] MEDS ORDERED: LACTOBACILLUS ACIDOPH & BULGAR 1 EACH PACKET PO SCH (09:00)
[2017-11-25] MEDS ORDERED: NON-FORMULARY DRUG (Lisdexamfetamine Dimesylate [Vyvanse] 70 MG) PO SCH (09:00)
[2017-11-25 09:17] LABS: ALT 159 U/L (9-52); AST 49 U/L (14-36); Albumin 3.6 g/dL (3.5-5.0); Alkaline Phosphatase 39 U/L (38-126); Anion Gap 13 mmol/L; Bilirubin, Delta 0.2 mg/dL (0.0-0.2); Bilirubin,Unconjugated 0.2 mg/dL (0.0-1.1); Blood Urea Nitrogen 11 mg/dL (7-17); Calcium 9.2 mg/dL (8.4-10.2); Carbon Dioxide 22 mmol/L (22-30); Chloride 107 mmol/L (98-107); Glucose 187 mg/dL (74-99); Potassium 3.8 mmol/L (3.5-5.1); Sodium 142 mmol/L (137-145); Total Bilirubin 0.4 mg/dL (0.2-1.3)
[2017-11-25] MEDS: ALBUTEROL NEBULIZED 2.5 MG/3 ML INHALATION PRN ×3 (09:22→16:17)
[2017-11-25] MEDS ORDERED: LEVOFLOXACIN 750 MG TAB PO SCH (12:00)
--- NOTE | 2017-11-25 12:26 | P.DS ---
Providers Date of admission: 11/23/17 12:30 Expected date of discharge: 11/25/17 Attending physician: Marshal Suazo Consults: 11/24/17 09:03 Consult Physician Routine Consulting Provider: Sandrita Auguste Consult Reason/Comments: MS exacerbation Do you want consulting provider notified?: Yes Primary care physician: [facility] Course: 32-year-old female who presented to the emergency room with a chief complaint of weakness, fatigue, double vision, and pneumonia per patient. The patient reports she was in [employer] last week and began feeling extremely fatigued, exhausted, and having double vision which she related to being at [employer] as they were doing a lot of activities and walking alot. The patient reports her symptoms did not improve when she got home. She states that she went to an urgent care last week and was prescribed an inhaler and doxycycline. She states her symptoms persisted so she went to [facility] yesterday who did an x-ray and told her she had bilateral pneumonia and referred her to the emergency room. No chest x-ray report is available at this time. The patient has a history of multiple sclerosis, anxiety, and depression. She is a former cigarette smoker. laboratory data upon admission reveals white count of 8.9. Hemoglobin 14.1. Platelet count 303. D-dimer 0.43. Sodium 143. Potassium 4.4. BUN 9. Creatinine 0.50. Glucose 56. AST 126. ALT 259. total bilirubin 0.6. Magnesium 2.0. Alkaline phosphatase 38. Troponins negative 1. She was placed on IV fluids and admitted to the hospital for further evaluation. Neurology has been consulted for exacerbation of multiple sclerosis. Patient has been receiving IV antibiotics while hospitalized. She was evaluated by neurology during hospitalization. She received high dose IV steroids for exacerbation of MS. Her MS symptoms have improved significantly. Dr. Land prescribed a prednisone taper at the time of discharge. Patient was given a paper rx for taper from neurology. Patient was deemed stable for discharge home by Dr. Suazo. She was also cleared for discharge this evening by neurology after she receives 1800 dose of IV steroids. Rx for Levaquin sent to the patients preferred pharmacy. DISCHARGE DIAGNOSIS: Acute exacerbation of multiple sclerosis Double vision secondary to above, resolved Steroid-induced hyperglycemia Left lower lobe pneumonia, cxr reveals patchy left basilar opacity Transaminitis, etiology unclear, labs improving at discharge History of anxiety and depression Nurse practitioner note has been reviewed by physician. Signing provider agrees with the documented findings, assessment, and plan of care. Patient Condition at Discharge: Stable Plan - Discharge Summary New Discharge Prescriptions: New Levofloxacin [Levaquin] 750 mg PO Q24H #7 tab Continue guaiFENesin [Mucinex] 600 mg PO Q12H PRN PRN Reason: Cough Albuterol Inhaler [Ventolin Hfa Inhaler] 2 puff INHALATION RT-Q6H PRN PRN Reason: Shortness Of Breath L.acidoph,Paracasei, B.lactis [Probiotic] 1 cap PO DAILY Inulin/Chromium Picolinate [Fiber Gummies Chew] 1 tab PO DAILY Cholecalciferol [Vitamin D3] 1,000 unit PO DAILY Ascorbic Acid [Vitamin C] 500 mg PO DAILY traMADol HCL [Ultram] 50 mg PO BID Lisdexamfetamine Dimesylate [Vyvanse] 70 mg PO QAM Ibuprofen/Diphenhydramine Cit [Motrin Pm Caplet] 2 tab PO HS PRN PRN Reason: Pain Dimethyl Fumarate [Tecfidera] 240 mg PO BID Discontinued Doxycycline Monohydrate [Vibramycin] 100 mg PO BID Discharge Medication List Albuterol Inhaler [Ventolin Hfa Inhaler] 2 puff INHALATION RT-Q6H PRN 11/23/17 [ History] Ascorbic Acid [Vitamin C] 500 mg PO DAILY 11/23/17 [History] Cholecalciferol [Vitamin D3] 1,000 unit PO DAILY 11/23/17 [History] Dimethyl Fumarate [Tecfidera] 240 mg PO BID 11/23/17 [History] Ibuprofen/Diphenhydramine Cit [Motrin Pm Caplet] 2 tab PO HS PRN 11/23/17 [ History] Inulin/Chromium Picolinate [Fiber Gummies Chew] 1 tab PO DAILY 11/23/17 [History ] L.acidoph,Paracasei, B.lactis [Probiotic] 1 cap PO DAILY 11/23/17 [History] Lisdexamfetamine Dimesylate [Vyvanse] 70 mg PO QAM 11/23/17 [History] guaiFENesin [Mucinex] 600 mg PO Q12H PRN 11/23/17 [History] traMADol HCL [Ultram] 50 mg PO BID 11/23/17 [History] Levofloxacin [Levaquin] 750 mg PO Q24H #7 tab 11/25/17 [Rx] Follow up Appointment(s)/Referral(s): Sandrita Auguste MD [STAFF PHYSICIAN] - 2 Weeks Marshal Suazo MD [Primary Care Provider] - 1 Week Patient Instructions/Handouts: Viral Pneumonia (DC) Activity/Diet/Wound Care/Special Instructions: PER NEURO- PAT CAN BE DISCHARGED AFTER 1800 dose of IVPB SOLUMEDROL. STEROID TAPER RX IS IN CHART. Discharge Disposition: HOME SELF-CARE
[2017-11-25 16:19] VITALS: PULSE 94
[2017-11-25 16:28] VITALS: RESP 16
== END 2017-11-25 18:04 | disposition home or self-care (01) | DRG 58 ==
LOC: EC 10:00 → 5MS5E 12:30 → 3SUR 12:45 → 4MS4W 22:22
PROVIDERS: ADMIT Family Medicine; ATTEND Family Medicine
DX: G35 Multiple sclerosis (principal); J18.9 Pneumonia, unspecified organism; F32.9 Major depressive disorder, single episode, unspecified; F41.9 Anxiety disorder, unspecified; K72.90 Hepatic failure, unspecified without coma; T38.0X5A Adverse effect of glucocorticoids and synthetic analogues, initial encounter; Z80.1 Family history of malignant neoplasm of trachea, bronchus and lung; Z87.891 Personal history of nicotine dependence; R31.9 Hematuria, unspecified; R74.0 Nonspecific elevation of levels of transaminase and lactic acid dehydrogenase [LDH]; H53.2 Diplopia; R73.9 Hyperglycemia, unspecified
CPT/HCPCS: 36415; 71046; 80048; 80053; 80076; 81001; 81025; 82550; 82553; 83036; 83735; 84450; 84460; 84484; 85025; 85379; 85610; 85730; 87040; 87070; 87205; 93005; 94640; 94644; 94760; 96365; 96375; 99285

== ENCOUNTER → 2017-12-04 | Outpatient (CLI) | payer BC ==
[2017-12-04 13:53] LABS: ALT 86 U/L (9-52); AST 35 U/L (14-36)
== END | disposition home or self-care (01) ==
LOC: LABWHC1 13:10
PROVIDERS: ATTEND Psychiatry & Neurology Neurology
DX: Z51.81 Encounter for therapeutic drug level monitoring (principal)
CPT/HCPCS: 36415; 84450; 84460

== ENCOUNTER → 2018-01-10 | Outpatient (CLI) | payer BC ==
--- NOTE | 2018-01-10 21:05 | MR ---
EXAMINATION TYPE: MR brain/cspine wo/w DATE OF EXAM: 01/10/2018 COMPARISON: 11/23/2016 HISTORY: White matter changes/MS TECHNIQUE: Multiplanar, multisequence images of the brain and brainstem is performed without and with IV contras t, utilizing 7 mL intravenous Gadavist. Demyelinating disease protocol with additional Sagittal Flai r sequence performed. FINDINGS: Brain: T2 Lesions Present : Yes Approximate Number of Lesions: 1 Locations Identified : Periventricular Size of Reference Lesion(s): 1. 0.4 cm x 0.5 cm x 0.5 cm on axial image 20 and sagittal image 14 Enhancing Lesion(s) Present: No Change from Prior: Stable Diffusion weighted images demonstrate no evidence of a recent infarct or other diffusion abnormality. There is no worrisome extra-axial fluid collection. The ventricular system and cisternal spaces ar e normal in size and appearance. The brain volume is age appropriate. Midline structures demonstrate normal morphology. The craniocervical junction appears within normal limits. Post contrast images demonstrate no abnormal enhancement. The dural venous sinuses appear pa tent. 2.2 cm mucosal retention cyst is seen within the right maxillary sinus. Scant mucosal thickenin g is seen within the left maxillary sinus and ethmoid sinuses. Remainder the visualized paranasal sin uses and mastoid air cells are well aerated. Cervical spine: The cervical spine vertebral bodies maintain normal vertebral body height and alignment. No abnormal bone marrow signal is seen. No focal disc herniation is identified. No spinal canal stenosis. There i s a small disc bulge at C5-C6 without neural foraminal narrowing or spinal canal stenosis. The focal lesion at C3 in the posterior left lateral spinal cord on image 40 of T2 weighted axial non fat sat sequence is subtly seen on FLAIR nonfat sat and postcontrast nonfat sat image 6. Although the re is no appreciable enhancement as this is subtly seen on T1-weighted and T2-weighted images. This a ppears similar in size measuring approximately 0.4 x 0.3 x 0.4 cm. No new spinal cord lesions are see n within the cervical spine or upper thoracic spine. IMPRESSION: 1. Stable solitary left 5 mm white matter plaque within the ruiz radiata in comparison to the prior exam of 11/23/2016. No new demyelinating lesions. No active demyelinating lesion seen. 2. Unchanged solitary cervical spine plaque in keeping with this patient's history of multiple sclero sis. No new lesions. 3. Small broad-based disc bulge at C5-C6 without spinal canal stenosis or neural foraminal narrowing.
== END | disposition home or self-care (01) ==
LOC: RADMRIMAIN 08:47
PROVIDERS: ATTEND Nurse Practitioner Acute Care
DX: M50.222 Other cervical disc displacement at C5-C6 level (principal); R90.89 Other abnormal findings on diagnostic imaging of central nervous system; G35 Multiple sclerosis
CPT/HCPCS: 70553; 72156; A9581